=== PATIENT | male | born 1955 | race Caucasian/White ===

== ENCOUNTER 2022-07-01 08:03 | Day surgery (SDC) | payer MEDICARE, OTHER ==
--- NOTE | 2022-07-01 09:38 | NUR ---
07/01/22 0938 Kenisha Howard 0931-PATIENT ARRIVED TO PACU ON 5L NC RR EVEN AWAKE PLACED ON 4L. PATIENT LAYING LEFT LATERAL ABDOMEN SOFT. IVF INFUSING. ENCOURAGED TO PASS GAS. PLAN TO SEND SLEEP APNEA HANDOUT HOME. HOB ELEVATED. ENCOURAGED DEEP BREATHES. 0937-PATIENT AWAKE TALKING 4L NC 96% MAYTETENT REPORTS "HAS GAINED WEIGHT"
--- NOTE | 2022-07-02 06:40 | OR ---
[facility] [address] [place], [place] [address] Signed DATE OF OPERATION: 07/01/2022 SURGEON: Vitaliy Lopez MD PREOPERATIVE DIAGNOSES: 1. History of chronic intermittent anemia. 2. Personal history of colonic polyps in 2004. POSTOPERATIVE DIAGNOSES: 1. Moderate sigmoid diverticulosis. 2. Moderate internal and external hemorrhoids. 3. 3 mm polyps x2 at 8 cm. 4. 5 mm polyps at distal transverse colon, 70 cm and 30 cm. PROCEDURE: Colonoscopy with hot biopsy. ESTIMATED BLOOD LOSS: None. INDICATIONS: Susan is a 66-year-old gentleman asked to see me for a followup colonoscopy. He underwent both upper and lower endoscopy in 2004 while living in [place], [place] for a GI bleed. He thinks this was at [facility]. He said he has chronic intermittent anemia. He takes iron tablets as needed and then he feels better. We have been unable to track down his results up to this point. Today, he thought they had removed 12 polyps at that time. He thinks he was told to follow up in 5 years. He has had to move around to various jobs and family issues and now he is here in [place], [place]. His primary care provider asked him to see me with respect to the above. He gives no family history of colon cancer or polyps. He has no lower GI complaints. In the office, I gave Susan a pamphlet on colonoscopy and we reviewed that together. He understands the nature of that test. There is risk including, but not limited to gas bloating, crampy abdominal pain, bleeding, perforation requiring surgery, and missed diagnosis. We also discussed the need for IV conscious sedation. He had expressed understanding and wished to proceed. PROCEDURE NOTE: Susan was taken into our endoscopy suite and placed in the left lateral decubitus position. He was given IV sedation with 7 mg of Versed and 100 mcg of fentanyl. Unfortunately, he is either awake and talking or he is demonstrating sleep apnea. He Electronically Signed By: VITALIY LOPEZ MD 07/02/22 0640 PATIENT NAME: SUSAN BARBOZA OPERATIVE REPORT DATE OF : 59 REPORT #: [id number] PHYSICIAN: VITALIY LOPEZ MD PCP: ONEYDA RAMSAY MD REPORT IS CONFIDENTIAL AND NOT TO BE RELEASED WITHOUT AUTHORIZATION [facility] [address] [place] [id number] Signed had quite a bit of sinus arrhythmia and bigeminy during the test as well. It sounds like he has gained 50 pounds in the last 3 years and which has probably exacerbated any sleep apnea. A digital rectal exam was performed. He does have moderate external hemorrhoids. He had good sphincter tone. He is a large man and I could just feel the base of his prostate. It is somewhat indurated and swollen. The adult colonoscope had been introduced and advanced under direct visualization of the camera. Overall, he tolerated the procedure well. Again, he was intermittently awake and talking to us. We did have to use some to maintain his airway. Eventually, we made our way into the cecum itself. His prep was good. We could easily see the appendiceal orifice and ileocecal valve. The scope was then slowly withdrawn. We took pictures throughout for photodocumentation. The above-mentioned polyps were removed with the help of hot biopsy forceps. He does have moderate sigmoid diverticulosis. They are moderate in size, moderate in number, and scattered about. Once in the rectum, the scope had been retroflexed and he does have moderate internal hemorrhoid columns as well. There was one internal and external hemorrhoid column in particular that is a bit beefy and I am sure it bleeds from time to time. After this, the gas was suctioned out and the colonoscope removed. Susan tolerated the procedure as above. RECOMMENDATIONS: I will see Susan back in my office in 7 to 14 days to review his results. He probably should consider monitored anesthesia care in the future. Vitaliy Lopez MD ALB/MODL /[id number] cc: Dr. Oneyda Lopez MD Copies: VITALIY LOPEZ MD ~ Electronically Signed By: VITALIY LOPEZ MD 07/02/22 0640 PATIENT NAME: SUSAN BARBOZA OPERATIVE REPORT DATE OF : 59 REPORT #: [id number] PHYSICIAN: VITALIY LOPEZ MD PCP: ONEYDA RAMSAY MD REPORT IS CONFIDENTIAL AND NOT TO BE RELEASED WITHOUT AUTHORIZATION
--- NOTE | 2022-07-02 14:56 | PATH ---
[facility] [place] [facility] [address] [place], [place] [address] Signed SPECIMEN(S): A POLYP AT 8 CM SPECIMEN(S): B POLYP AT 70 CM SPECIMEN(S): C DISTAL TRANSVERSE COLON POLYP SPECIMEN(S): D POLYP AT 30 CM SPECIMEN SOURCE: A. POLYP AT 8 CM B. POLYP AT 70 CM C. DISTAL TRANSVERSE COLON POLYP D. POLYP AT 30 CM CLINICAL HISTORY: Follow up colonoscopy, history polyps. Post: Diverticulosis, polyps x 4, internal and external hemorrhoids. FINAL PATHOLOGIC DIAGNOSIS: A. Polyp at 8 cm: - Hyperplastic polyp. B. Polyp at 70 cm: - Tubular adenoma (one fragment). C. Distal transverse colon polyp: - Tubular adenoma (one fragment). D. Polyp at 30 cm: - Hyperplastic polyp (one fragment). JVR:caw:C2NR MICROSCOPIC EXAMINATION: Histologic sections of all submitted blocks are examined by light microscopy. These findings, together with the gross examination, support the pathologic diagnosis. GROSS DESCRIPTION: Four specimens are received in four containers, labeled "RC." A. The specimen, labeled "RC, polyp at 8 cm," is received in formalin and consists of two choudhary soft tissue fragments that measure 0.3 cm in greatest dimension. The specimen is entirely submitted in cassette (A1). B. The specimen, labeled "RC polyp at 70 cm," is received in formalin and consists of one choudhary soft tissue fragment that measures 0.3 cm in greatest dimension. The specimen is entirely submitted in cassette (B1). PATIENT NAME: SUSAN BARBOZA PATHOLOGY DATE OF : 59 REPORT #: [id number] PHYSICIAN: DELON GOOD PCP: MELISSA RAMSAY MD REPORT IS CONFIDENTIAL AND NOT TO BE RELEASED WITHOUT AUTHORIZATION [facility] [place] [facility] [address] [place], [place] [address] Signed C. The specimen, labeled "RC, distal transverse colon polyp," is received in formalin and consists of one choudhary soft tissue fragment that measures 0.3 cm in greatest dimension. The specimen is entirely submitted in cassette (C1). D. The specimen, labeled "RC, polyp at 30 cm," is received in formalin and consists of one choudhary soft tissue fragment that measures 0.3 cm in greatest dimension. The specimen is entirely submitted in cassette (D1). AT(under the direct supervision of a pathologist) The Gross Description was prepared using a voice recognition system. The report was reviewed for accuracy; however, sound-alike word errors, addition and/or deletions may occur. If there is any question about this report, please contact Client Services. PERFORMING LABORATORY: The technical component was performed by [facility], [address] [place] [id number] (CLIA# [id number]). Professional interpretation was performed by [facility], [address] [place] [id number] (CLIA#: [id number]). Diagnostician: Quinton Bajwa MD Pathologist Electronically Signed 07/02/2022 Copies: ~ PATIENT NAME: SUSAN BARBOZA PATHOLOGY DATE OF : 59 REPORT #: [id number] PHYSICIAN: DELON PATHOLOGY PCP: MELISSA RAMSAY MD REPORT IS CONFIDENTIAL AND NOT TO BE RELEASED WITHOUT AUTHORIZATION
== END 2022-07-01 10:10 | disposition home or self-care (01) ==
LOC: OPS 08:03 → DS 08:03 → OPS 09:00 → DS 09:45 → OPS 09:45
PROVIDERS: ATTEND Colon & Rectal Surgery
PROC: 0DBL8ZX Excision of Transverse Colon, Via Natural or Artificial Opening Endoscopic, Diagnostic (ICD-10-PCS; principal; 2022-07-01 09:00)
DX: Z12.11 Encounter for screening for malignant neoplasm of colon (principal); D12.3 Benign neoplasm of transverse colon; D12.6 Benign neoplasm of colon, unspecified; K63.5 Polyp of colon; K57.30 Diverticulosis of large intestine without perforation or abscess without bleeding; K64.8 Other hemorrhoids; K64.4 Residual hemorrhoidal skin tags
CPT/HCPCS: 99153; G0500; J2250; J3010; J7121

== ENCOUNTER 2025-07-20 13:56 | Emergency (ER) | payer MEDICARE, OTHER ==
[~2025-07-20] VITALS: Ht 180.3 cm; Wt 105.0 kg
[2025-07-20 14:10] LABS: BASOPHILS 0.7 % (0.2-1.2); EOSINOPHILS 0.5 % (0.8-7.0); LYMPHOCYTES 21.8 % (21.8-53.1); MCH 28.5 PG (25.7-32.2); MCHC 32.2 g/dL (32.3-36.5); MCV 88.6 fL (79.0-92.2); MONOCYTES 8.4 % (5.3-12.2); NEUTROPHILS 68.2 % (34.0-67.9); RBC 5.08 M/uL (4.63-6.08)
[2025-07-20] MEDS ORDERED: ASPIRIN 325 MG TAB PO ONE (14:15)
[2025-07-20] MEDS ORDERED: ASPIRIN 81 MG CHEW PO ONE (14:15)
[2025-07-20] MEDS ORDERED: GARLIC400 M1 PO (14:24)
[2025-07-20] MEDS ORDERED: FISH OIL 1,0001 EAC6 PO (14:24)
[2025-07-20] MEDS ORDERED: SAW PALMETTO450 MG PO (14:24)
[2025-07-20] MEDS ORDERED: HAWTHORN150 MG PO (14:25)
[2025-07-20 14:29] LABS: INR 0.91 (0.80-1.30); PROTIME 11.9 Sec (11.2-14.2)
[2025-07-20 14:33] LABS: ALT (SGPT) 31.0 U/L (14-59); AST (SGOT) 24.0 U/L (15-37); GLOMERULAR FILTRATION RATE,EST 75.0 mL/min (>60); PROTEIN, TOTAL 7.8 g/dL (6.4-8.2); UREA NITROGEN 17.0 mg/dL (7-18)
--- NOTE | 2025-07-20 15:21 | EKG ---
[facility] [place] [facility] [address] [facility] [place] [address] Signed Sinus rhythm with premature atrial complexes in a pattern of bigeminy Otherwise normal ECG No previous ECGs available Confirmed by JUDSON RODRIGUEZ MD ([id number]) on 07/20/2025 3:21:21 PM Electronically Signed By: JUDSON RODRIGUEZ 07/20/25 1521 PATIENT NAME: SUSAN BARBOZA Electrocardiogram DATE OF : 59 PHYSICIAN: JUDSON RODRIGUEZ REPORT #: [id number] REPORT IS CONFIDENTIAL AND NOT TO BE RELEASED WITHOUT AUTHORIZATION
[2025-07-20] MEDS ORDERED: NITROGLYCERIN 0.4 MG SUBL SL ONE (16:15)
[2025-07-20] MEDS ORDERED: HEPARIN SOD,PORK IN 0.45% NACL 500 ML IV SCH (16:45)
[2025-07-20 19:02] VITALS: BP 144/83
--- NOTE | 2025-07-21 14:54 | EKG ---
[facility] [address] [facility] [place] [address] Signed Sinus rhythm with marked sinus arrhythmia Otherwise normal ECG When compared with ECG of 20-JUL-2025 13:59, premature atrial complexes are no longer present Confirmed by JUDSON RODRIGUEZ MD ([id number]) on 07/21/2025 2:54:19 PM Electronically Signed By: JUDSON RODRIGUEZ 07/21/25 1454 PATIENT NAME: SABINA BARBOZADonny GRANGER Electrocardiogram DATE OF : 59 PHYSICIAN: JUDSON RODRIGUEZ REPORT #: [id number] REPORT IS CONFIDENTIAL AND NOT TO BE RELEASED WITHOUT AUTHORIZATION
== END 2025-07-20 19:00 | disposition short-term general hospital (02) ==
LOC: ED 13:56
PROVIDERS: Emergency Medicine
DX: I21.4 Non-ST elevation (NSTEMI) myocardial infarction (principal); Z79.899 Other long term (current) drug therapy
CPT/HCPCS: 36415; 71045; 80048; 80053; 83880; 84484; 85025; 85379; 85610; 85730; 93005; 93010; 96374; 99285-25; A9270; J1644